=== PATIENT | female | born 1970 | race Caucasian/White ===

== ENCOUNTER 2017-04-15 11:05 | Emergency (ER) | payer SELFPAY ==
[~2017-04-15 11:05] MED LIST: Sodium Chloride 0.9% 1,000 ML BAG ONE
[2017-04-15] MEDS ORDERED: Proparacaine 0.5% Opth 15 ML BOT ONE ×3 (11:31→11:34)
[2017-04-15] MEDS ORDERED: cefTRIAXone\\ROCEPHIN 1 GM VIAL ONE (11:34)
[2017-04-15] MEDS ORDERED: Tobramycin Sulfate 0.3% Ophth Susp 5 ml Bottle ONE (12:43)
== END 2017-04-15 12:48 | disposition home or self-care (01) ==
LOC: MADERS 11:05
DX: S05.02XA Injury of conjunctiva and corneal abrasion without foreign body, left eye, initial encounter (principal); S05.01XA Injury of conjunctiva and corneal abrasion without foreign body, right eye, initial encounter; X58.XXXA Exposure to other specified factors, initial encounter
CPT/HCPCS: 99283; J0696; J1956; J7050

== ENCOUNTER 2019-11-12 18:07 | Emergency (ER) | payer SELFPAY | END 2019-11-12 18:48 | disposition home or self-care (01) | LOC: MADERS 18:07 | DX: S83.91XA Sprain of unspecified site of right knee, initial encounter (principal); Z86.711 Personal history of pulmonary embolism; X50.0XXA Overexertion from strenuous movement or load, initial encounter; Y93.B3 Activity, free weights | CPT/HCPCS: 99283 ==